=== PATIENT | female | born 1985 | race Caucasian/White ===

== ENCOUNTER 2022-12-26 18:10 | Emergency (ER) | payer OTHER ==
[~2022-12-26] VITALS: Ht 170.2 cm; Wt 68.5 kg
[2022-12-26] MEDS ORDERED: IBUP-1114 PO (18:15)
[2022-12-26] MEDS ORDERED: AUGMENTIN 875 MG TAB PO ONE (19:45)
[2022-12-26] MEDS ORDERED: KETOROLAC 60MG 2ML VIAL IM ONE (19:45)
[2022-12-26] MEDS ORDERED: predniSONE 20 MG TAB PO ONE (19:45)
[2022-12-26] MEDS ORDERED: HYDR-3713 PO (19:50)
[2022-12-26] MEDS ORDERED: AMOX875T2 PO (19:50)
[2022-12-26] MEDS ORDERED: ANBE20GE TOP (19:50)
[2022-12-26] MEDS ORDERED: IBUP-1022 PO (19:50)
[2022-12-26 20:14] VITALS: BP 138/81; TEMP 99.7; O2SAT 100
== END 2022-12-26 20:21 | disposition home or self-care (01) ==
LOC: M ED 18:10
DX: K04.7 Periapical abscess without sinus (principal); K03.81 Cracked tooth
CPT/HCPCS: 96372; 99283; J1885; J7512